=== PATIENT | female | born 1955 | race Caucasian/White ===

== ENCOUNTER 2018-10-10 07:30 | Day surgery (SDC) | payer SELFPAY ==
[2018-10-10 08:09] VITALS: BP 108/76; PULSE 79; RESP 16; TEMP 36.6; O2SAT 100; BMI 21.8
--- NOTE | 2018-10-10 09:07 | OP.ENDO_ITS ---
Patient Name: Sumi Church Procedure Date: 10/10/2018 8:22 AM Date of : 1955 Age: 63 Procedure: Colonoscopy Indications: Screening for colorectal malignant neoplasm, This is the patient's first colonoscopy Providers: Hector Chan MD Referring MD: Hector Chan MD Medicines: Monitored Anesthesia Care Patient Profile: This is a 63 year old female. Refer to note in patient chart for documentation of history and physical. Last Colonoscopy: none. The patient's first colonoscopy is today. Complications: No immediate complications. Procedure: Pre-Anesthesia Assessment: - Prior to the procedure, a History and Physical was performed, and patient medications and allergies were reviewed. The patient's tolerance of previous anesthesia was also reviewed. The risks and benefits of the procedure and the sedation options and risks were discussed with the patient. All questions were answered, and informed consent was obtained. Prior Anticoagulants: The patient has taken no previous anticoagulant or antiplatelet agents. After reviewing the risks and benefits, the patient was deemed in satisfactory condition to undergo the procedure. After I obtained informed consent, the scope was passed under direct vision. Throughout the procedure, the patient's blood pressure, pulse, and oxygen saturations were monitored continuously. The colonoscope was introduced through the anus and advanced to the cecum, identified by appendiceal orifice and ileocecal valve. The colonoscopy was technically difficult and complex due to inadequate bowel prep. Successful completion of the procedure was aided by applying abdominal pressure. The patient tolerated the procedure well. The quality of the bowel preparation was unsatisfactory. Scope In: 8:31:00 AM Scope Withdrawal Time 0 hours 6 minutes 6 seconds Scope Out: 9:03:00 AM Total Procedure Duration Time 0 hours 32 minutes 0 seconds Findings: The entire examined colon appeared normal on direct and retroflexion views. Impression: - Preparation of the colon was unsatisfactory. - The entire examined colon is normal on direct and retroflexion views. - No specimens collected. Recommendation: - Discharge patient to home. - Resume previous diet. - Continue present medications. - Repeat colonoscopy in 1 year because the bowel preparation was poor. Procedure Code(s): --- Professional --- G0121, Colorectal cancer screening; colonoscopy on individual not meeting criteria for high risk Diagnosis Code(s): --- Professional --- Z12.11, Encounter for screening for malignant neoplasm of colon CPT copyright 2017 [employer]. All rights reserved. The codes documented in this report are preliminary and upon strainer tender review may be revised to meet current compliance requirements. Hector Chan MD 10/10/2018 9:07:17 AM This report has been signed electronically. Number of Addenda: 0 Note Initiated On: 10/10/2018 8:22 AM
[2018-10-10 09:10] VITALS: BP 108/76; BP 118/66; PULSE 65; RESP 16; TEMP 36.4; O2SAT 100
[2018-10-10 09:15] VITALS: BP 108/76; BP 118/67; PULSE 65; RESP 16; O2SAT 100
[2018-10-10 09:20] VITALS: BP 108/76; BP 122/62; PULSE 61; RESP 16; O2SAT 100
[2018-10-10 09:25] VITALS: BP 108/76; BP 122/63; PULSE 60; RESP 16; TEMP 36.4; O2SAT 100
[2018-10-10 10:05] VITALS: BP 108/76
== END 2018-10-10 10:06 | disposition home or self-care (01) ==
LOC: EN 07:33 → AC 07:35
PROVIDERS: Referring Provider Surgery; Visit Provider Surgery
PROC: 0DJD8ZZ Inspection of Lower Intestinal Tract, Via Natural or Artificial Opening Endoscopic (ICD-10-PCS; CPT 45378; principal; 2018-10-10 08:25)
DX: Z12.11 Encounter for screening for malignant neoplasm of colon (principal); K59.00 Constipation, unspecified; I25.2 Old myocardial infarction; R01.1 Cardiac murmur, unspecified; G35 Multiple sclerosis; G25.81 Restless legs syndrome; K21.9 Gastro-esophageal reflux disease without esophagitis; Z78.0 Asymptomatic menopausal state; Z79.82 Long term (current) use of aspirin; Z79.899 Other long term (current) drug therapy
CPT/HCPCS: 45378; J7120